=== PATIENT | female | born 1975 | race Caucasian/White ===

== ENCOUNTER 2018-04-21 20:48 | Observation (INO) | payer MEDICAID ==
[~2018-04-21] VITALS: Ht 157.5 cm; Wt 60.5 kg
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
[2018-04-21] MEDS ORDERED: ROBAXIN500 MG PO (20:56)
[2018-04-21] MEDS ORDERED: CELEXA20 MG PO (20:57)
[2018-04-21] MEDS ORDERED: TRAZODONE HCL50 MG PO (20:57)
[2018-04-21] MEDS ORDERED: VISTARIL25 MG PO (20:57)
[2018-04-21] MEDS ORDERED: LITHIUM CARBON300 MG PO (20:58)
[2018-04-21 21:00] VITALS: BP 129/84
[2018-04-21 21:30] LABS: BASOPHILS 0.2 % (0-2); EOSINOPHILS 0.6 % (0-7); HEMATOCRIT 43.1 % (36.0-48.0); HEMOGLOBIN 14.7 g/dL (12-16); IMMATURE GRANULOCYTES 0.1 % (0-5); LYMPHOCYTES 34.2 % (15-50); MCH 32.5 pg (26.0-34.0); MCHC 34.1 g/dL (31.0-37.0); MCV 95.4 fL (80.0-100.0); MEAN PLATELET VOLUME 8.8 fL (7.4-10.4); MONOCYTES 4.1 % (2-11); NEUTROPHILS 60.8 % (40-80); PLATELET COUNT 301 10x3/uL (130-400); RBC 4.52 10x6/uL (4.00-5.40); RDW 13.7 % (11.5-14.5); WBC 11.4 10x3/uL (4.8-10.8)
[2018-04-21 21:42] LABS: LITHIUM 0.2 mmol/L (0.60-1.20)
[2018-04-21 21:48] LABS: ALBUMIN 3.3 g/dL (3.4-5.0); ALKALINE PHOSPHATASE 68 U/L (46-116); ALT (SGPT) 17 U/L (10-68); BILIRUBIN - TOTAL 0.23 mg/dL (0.2-1.3); CALC OSMOLALITY 285 mosm/kg (275-300); CALCIUM 8.9 mg/dL (8.5-10.1); CARBON DIOXIDE 25.2 mmol/L (21.0-32.0); CHLORIDE - SERUM 109 mmol/L (98-107); CREATININE - SERUM 0.7 mg/dL (0.6-1.3); GLUCOSE 83 mg/dL (74-106); PROTEIN - SERUM 6.8 g/dL (6.4-8.2); SODIUM 145 mmol/L (136-145); UREA NITROGEN 6 mg/dL (7-18); eGFR NON AFRICAN AMERICAN > 90 mL/min (90-120)
[2018-04-21 21:50] LABS: HCG - QUANTITATIVE (MATERNAL) 1 mIU/mL
[2018-04-21 22:00] VITALS: BP 131/66
[2018-04-21 22:21] LABS: UDS - AMPHET NEGATIVE QUAL (NEGATIVE); UDS - BARB NEGATIVE QUAL (NEGATIVE); UDS - BENZO NEGATIVE QUAL (NEGATIVE); UDS - COCAINE NEGATIVE QUAL (NEGATIVE); UDS - OPIATE POSITIVE QUAL (NEGATIVE); UDS - PCP NEGATIVE QUAL (NEGATIVE); UDS - THC NEGATIVE QUAL (NEGATIVE)
[2018-04-21 23:00] VITALS: BP 103/55
[2018-04-22] VITALS (13 sets, daily range): BP systolic 114–154; BP diastolic 64–100; Ht 157.5 cm; Wt 60.5 kg
[2018-04-22 05:08] LABS: BASOPHILS 0.3 % (0-2); HEMATOCRIT 40.6 % (36.0-48.0); HEMOGLOBIN 13.6 g/dL (12-16); IMMATURE GRANULOCYTES 0.1 % (0-5); LYMPHOCYTES 35.3 % (15-50); MCH 31.9 pg (26.0-34.0); MCHC 33.5 g/dL (31.0-37.0); MCV 95.1 fL (80.0-100.0); MEAN PLATELET VOLUME 9.2 fL (7.4-10.4); MONOCYTES 4.8 % (2-11); NEUTROPHILS 58.5 % (40-80); PLATELET COUNT 338 10x3/uL (130-400); RBC 4.27 10x6/uL (4.00-5.40); RDW 13.8 % (11.5-14.5)
[2018-04-22 05:19] LABS: CALC OSMOLALITY 282 mosm/kg (275-300); CALCIUM 8.5 mg/dL (8.5-10.1); CARBON DIOXIDE 22.8 mmol/L (21.0-32.0); CHLORIDE - SERUM 111 mmol/L (98-107); CREATININE - SERUM 0.6 mg/dL (0.6-1.3); GLUCOSE 105 mg/dL (74-106); MAGNESIUM - SERUM 1.8 mg/dL (1.8-2.4); POTASSIUM - SERUM 3.6 mmol/L (3.5-5.1); SODIUM 143 mmol/L (136-145); UREA NITROGEN 7 mg/dL (7-18); eGFR NON AFRICAN AMERICAN > 90 mL/min (90-120)
[2018-04-22 05:24] LABS: WBC 7.8 10x3/uL (4.8-10.8)
== END 2018-04-22 12:52 | disposition home or self-care (01) ==
LOC: D.ER 20:48 → D.EDHOLD 22:56 → OBSVTIME 22:56 → D.ICU 22:56
PROVIDERS: Family Medicine
DX: T50.901A Poisoning by unspecified drugs, medicaments and biological substances, accidental (unintentional), initial encounter (principal); F32.9 Major depressive disorder, single episode, unspecified; R41.82 Altered mental status, unspecified

== ENCOUNTER → 2020-06-09 09:30 | Outpatient (CLI) | payer MEDICAID ==
[2018-04-22 09:48] VITALS: BMI 24.4
[~2020-06-09 09:30] MED LIST: CELEXA20 MG PO; LITHIUM CARBON300 MG PO; ROBAXIN500 MG PO; TRAZODONE HCL50 MG PO; VISTARIL25 MG PO
== END | disposition home or self-care (01) ==
LOC: D.NM 09:30
PROVIDERS: ATTEND Family Medicine
DX: R10.11 Right upper quadrant pain (principal)

== ENCOUNTER 2021-03-19 16:38 | Inpatient (IN) | payer MEDICAID ==
[2021-03-19] VITALS (10 sets, daily range): BP systolic 77–98; BP diastolic 43–65
[~2021-03-19] VITALS: Ht 157.5 cm; Wt 83.0 kg
[2021-03-19 17:34] LABS: HEMATOCRIT 41.2 % (36.0-48.0); HEMOGLOBIN 13.7 g/dL (12-16); MCHC 33.4 g/dL (31.0-37.0); MCV 95.8 fL (80.0-100.0); PLATELET COUNT 341 10x3/uL (130-400); RDW 14.2 % (11.5-14.5); WBC 10.3 10x3/uL (4.8-10.8)
[2021-03-19 17:52] LABS: CALC OSMOLALITY 282 mosm/kg (275-300); CALCIUM 8.9 mg/dL (8.5-10.1); CARBON DIOXIDE 20.5 mmol/L (21.0-32.0); CHLORIDE - SERUM 104 mmol/L (98-107); CREATININE - SERUM 0.9 mg/dL (0.6-1.3); GLUCOSE 111 mg/dL (74-106); POTASSIUM - SERUM 3.9 mmol/L (3.5-5.1); SODIUM 141 mmol/L (136-145); UREA NITROGEN 14 mg/dL (7-18); eGFR NON AFRICAN AMERICAN 71 mL/min (90-120)
[2021-03-19 17:54] LABS: SALICYLATES 4.9 mg/dL (2.8-20.0)
[2021-03-19 18:01] LABS: ALBUMIN 3.9 g/dL (3.4-5.0); ALKALINE PHOSPHATASE 92 U/L (30-120); ALT (SGPT) 148 U/L (10-68); BILIRUBIN - TOTAL 0.17 mg/dL (0.2-1.3); LIPASE 684 U/L (73-393); LITHIUM 0.02 mmol/L (0.60-1.20); MAGNESIUM - SERUM 2.1 mg/dL (1.8-2.4); PROTEIN - SERUM 7.3 g/dL (6.4-8.2)
[2021-03-19 18:02] LABS: ACETAMINOPHEN < 10.0 ug/mL (10.0-30.0)
[2021-03-19 18:52] LABS: EOSINOPHILS 2 % (0-7); LYMPHOCYTES 43 % (15-50); NEUTROPHILS 55 % (40-80); PLATELET ESTIMATE NORMAL
[2021-03-19 21:31] LABS: BILIRUBIN NEGATIVE (NEGATIVE); KETONE NEGATIVE (NEGATIVE); NITRITE NEGATIVE (NEGATIVE); UROBILINOGEN NORMAL mg/dL (< 2)
[2021-03-19 21:34] LABS: UDS - AMPHET NEGATIVE QUAL (NEGATIVE); UDS - BARB NEGATIVE QUAL (NEGATIVE); UDS - BENZO POSITIVE QUAL (NEGATIVE); UDS - COCAINE NEGATIVE QUAL (NEGATIVE); UDS - OPIATE NEGATIVE QUAL (NEGATIVE); UDS - PCP NEGATIVE QUAL (NEGATIVE); UDS - THC NEGATIVE QUAL (NEGATIVE)
--- NOTE | 2021-03-19 23:27 | NUR ---
DR. CHENG AND REVIEWED PT'S BEHAVIOR AND ASSESSMENT RESULTS. PT IS A LOW RISK PER DR. HCENG. DR. CHENG STATED TO GIVE RESOURCES TO PT AT TIME OF DISCHARGE. NO FURTHER ORDERS AT THIS TIME. RESOURCES REVIEWED WITH PT AND SHE VERBALIZED UNDERSTANDING.
[2021-03-20] VITALS (35 sets, daily range): BP systolic 83–166; BP diastolic 46–116; Ht 157.5 cm; Wt 83.0 kg
[2021-03-20] MEDS ORDERED: LIBRIUM5 MG PO (00:06)
[2021-03-20 04:28] LABS: HEMATOCRIT 35.2 % (36.0-48.0); HEMOGLOBIN 11.8 g/dL (12-16); MCH 32.2 pg (26.0-34.0); MCHC 33.6 g/dL (31.0-37.0); MCV 95.6 fL (80.0-100.0); MEAN PLATELET VOLUME 7.5 fL (7.4-10.4); PLATELET COUNT 286 10x3/uL (130-400); RBC 3.68 10x6/uL (4.00-5.40); RDW 13.8 % (11.5-14.5); WBC 5.5 10x3/uL (4.8-10.8)
[2021-03-20 04:33] LABS: APTT 27.2 SECONDS (22.8-39.4); INR 1.24 (0.85-1.17); PROTIME 14.4 SECONDS (11.6-15.0)
[2021-03-20 04:47] LABS: ALKALINE PHOSPHATASE 58 U/L (30-120); ALT (SGPT) 123 U/L (10-68); BILIRUBIN - TOTAL 0.21 mg/dL (0.2-1.3); CALC OSMOLALITY 290 mosm/kg (275-300); CALCIUM 7.5 mg/dL (8.5-10.1); CARBON DIOXIDE 25.1 mmol/L (21.0-32.0); CHLORIDE - SERUM 113 mmol/L (98-107); CREATINE KINASE 90 UL (21-215); CREATININE - SERUM 0.8 mg/dL (0.6-1.3); GLUCOSE 95 mg/dL (74-106); POTASSIUM - SERUM 4.2 mmol/L (3.5-5.1); PROTEIN - SERUM 5.6 g/dL (6.4-8.2); SODIUM 146 mmol/L (136-145); UREA NITROGEN 13 mg/dL (7-18); eGFR NON AFRICAN AMERICAN 81 mL/min (90-120)
[2021-03-20 04:49] LABS: ALBUMIN 2.9 g/dL (3.4-5.0); LIPASE 184 U/L (73-393); TROPONIN-I < 0.017 ng/mL (0.000-0.060)
[2021-03-20 05:28] LABS: CKMB 1.3 U/L (0.0-3.6)
[2021-03-20 05:44] LABS: EOSINOPHILS 1 % (0-7); LYMPHOCYTES 75 % (15-50); NEUTROPHILS 23 % (40-80); PLATELET ESTIMATE NORMAL
--- NOTE | 2021-03-20 06:05 | NUR ---
Shift summary: Patient follows commands, lethargic. Levophed drip off, maintaining adequate BP/MAP. Pain controlled with prn Tylenol. Denies any needs.
[2021-03-21] VITALS (13 sets, daily range): BP systolic 136–182; BP diastolic 91–115
[2021-03-21 05:20] LABS: BASOPHILS 0.4 % (0-2); HEMATOCRIT 31.8 % (36.0-48.0); HEMOGLOBIN 10.9 g/dL (12-16); LYMPHOCYTES 42.9 % (15-50); MCH 32.8 pg (26.0-34.0); MCHC 34.2 g/dL (31.0-37.0); MCV 96.1 fL (80.0-100.0); MEAN PLATELET VOLUME 7.9 fL (7.4-10.4); MONOCYTES 3.6 % (2-11); NEUTROPHILS 51.1 % (40-80); PLATELET COUNT 272 10x3/uL (130-400); RBC 3.31 10x6/uL (4.00-5.40); RDW 14.1 % (11.5-14.5); WBC 6.7 10x3/uL (4.8-10.8)
[2021-03-21 05:46] LABS: ALBUMIN 2.7 g/dL (3.4-5.0); ALKALINE PHOSPHATASE 60 U/L (30-120); ALT (SGPT) 101 U/L (10-68); BILIRUBIN - TOTAL 0.46 mg/dL (0.2-1.3); CALCIUM 7.4 mg/dL (8.5-10.1); CARBON DIOXIDE 24.9 mmol/L (21.0-32.0); CHLORIDE - SERUM 111 mmol/L (98-107); CREATININE - SERUM 0.6 mg/dL (0.6-1.3); GLUCOSE 82 mg/dL (74-106); MAGNESIUM - SERUM 1.7 mg/dL (1.8-2.4); PROTEIN - SERUM 5.2 g/dL (6.4-8.2); SODIUM 144 mmol/L (136-145); eGFR NON AFRICAN AMERICAN > 90 mL/min (90-120)
[2021-03-21 05:47] LABS: CALC OSMOLALITY 283 mosm/kg (275-300); POTASSIUM - SERUM 3.4 mmol/L (3.5-5.1); UREA NITROGEN 8 mg/dL (7-18)
[2021-03-21] MEDS ORDERED: LOPRESSOR25 MG (12:01)
--- NOTE | 2021-03-21 14:42 | NUR ---
RCVED PT VIA ICU STAFF. ALERT AND ORIENTED WITH NO CURRENT S/S OF DISTRESS AT THIS TIME. PT DENIES CURRENT NEEDS AT THIS TIME, WILL CONT TO MONITOR.
--- NOTE | 2021-03-21 15:49 | NUR ---
REPORTS HEADACHE, 6/10 PAIN. ADMINISTERED TYLENOL PER DRS ORDERS. WILL CONT TO MONITOR.
--- NOTE | 2021-03-21 19:45 | NUR ---
RECEIVED BEDSIDE REPORT. PT LAYING IN BED A&O X4. PIV TO LEFT HAND, PATENT AND INFUSING, NO REDNESS OR SWEELING. PT ABLE TO AMBULATE AD JOSE DE JESUS. EDUCATED PT ON CL AND NEEDS, VERBALIZED UNDERSTANDING. BED LOW, CL IN REACH.
[2021-03-22] VITALS: BP 131/79
[2021-03-22 04:00] VITALS: BP 144/75
[2021-03-22 05:23] VITALS: BP 169/106
[2021-03-22 06:03] LABS: BASOPHILS 0.4 % (0-2); EOSINOPHILS 2.1 % (0-7); LYMPHOCYTES 25.4 % (15-50); MCHC 33.5 g/dL (31.0-37.0); MCV 95.6 fL (80.0-100.0); MEAN PLATELET VOLUME 7.6 fL (7.4-10.4); MONOCYTES 4.2 % (2-11); NEUTROPHILS 67.9 % (40-80); PLATELET COUNT 274 10x3/uL (130-400); RBC 3.76 10x6/uL (4.00-5.40); RDW 13.8 % (11.5-14.5); WBC 7.3 10x3/uL (4.8-10.8)
[2021-03-22 06:17] VITALS: BP 147/88; BP 155/87
[2021-03-22 06:41] LABS: ALBUMIN 3.3 g/dL (3.4-5.0); ALKALINE PHOSPHATASE 76 U/L (30-120); ALT (SGPT) 92 U/L (10-68); BILIRUBIN - TOTAL 0.45 mg/dL (0.2-1.3); CALC OSMOLALITY 285 mosm/kg (275-300); CALCIUM 8.7 mg/dL (8.5-10.1); CHLORIDE - SERUM 108 mmol/L (98-107); CREATININE - SERUM 0.7 mg/dL (0.6-1.3); GLUCOSE 103 mg/dL (74-106); MAGNESIUM - SERUM 1.6 mg/dL (1.8-2.4); POTASSIUM - SERUM 3.5 mmol/L (3.5-5.1); PROTEIN - SERUM 6.5 g/dL (6.4-8.2); SODIUM 144 mmol/L (136-145); UREA NITROGEN 9 mg/dL (7-18); eGFR NON AFRICAN AMERICAN > 90 mL/min (90-120)
--- NOTE | 2021-03-22 08:33 | NUR ---
ASSESSMENT PER FLOW SHEET. PATIENT IS WITHOUT DISTRESS.HEADACHE 3/10 SCALE NOW. AM MEDS. HOPES TO DC TODAY. CALL LIGHT IN REACH.
[2021-03-22 08:47] VITALS: BP 142/86
--- NOTE | 2021-03-22 11:56 | NUR ---
Nutrition Follow-up: Diet: Regular PO intake: 100% x last 2 meals recorded. She ate 100% of breakfast and reports a good appetite. Denies chewing or swallowing difficulty. Last BM: none since admit Wt: 182# (03/21/21); Admit Wt: 174.1# Meds and labs reviewed Recommend: -Continue Regular diet. Will continue to honor food preferences. -RD will continue to monitor PO intake and wt trend. -RD will follow-up 03/27/21.
--- NOTE | 2021-03-22 14:34 | NUR ---
DISCHARGE INSTRUCTIONS,STATES UNDERSTANDING. IV DCD WITH CATH TIP INTACT.CALL FOR RIDE HOME.
--- NOTE | 2021-03-22 15:05 | MORECARE ---
CASE MANAGEMENT DISCHARGE SUMMARY PATIENT: LAVON JULES UNIT: [id number] ADM DATE: 03/19/21 AGE: 45 : 71 SEX: F ROOM/BED: D.2207 AUTHOR: KATLYN,DOC PHYSICIAN: REFERRING PHYSICIAN: JOHN BLANCAS MD DATE OF SERVICE: 03/22/21 Case Management Discharge Planning Summary COMMENTS ENTERED DATE: 03/22/21 14:54 CT COMMENT TYPE: Discharge Planning REVIEWER: Mariposa Whyte CM met with patient to complete initial dc planning assessment. CM educated patient on the CM role and verbal consent given by patient to complete assessment. Patient lives at home where she is independent with her care. Her mother will be her caterpillar driver home. At discharge patient plans to return home and feels this is a safe discharge. CM discussed availability of home health, rehab services, and medical equipment. Dr Cosby is her PCP and she uses the [facility] on [address]. ETOH information was given to her along with help centers and programs here locally. Patient denied known discharge needs at this time. CM will continue to follow and will assist as needed with dc plans/needs. DCP REVIEW SUMMARY ANTICIPATED D/C DATE: EXPECTED LOS : CASE STATUS: DCP Initiated INITIAL REVIEW: 03/19/2021 INITIAL REVIEWER: Mariposa Whyte FINAL DISCHARGE DISPOSITION: 01 : Home or Self Care (Routine Discharge) FINAL REVIEWER: FINAL REVIEW DATE: DCP Focus Questions & Answers QUESTION: ANSWER : PATIENT: LAVON JULES ENCOUNTER: [id number] MEDICAL RECORD#: [id number] ADMISSION DATE: 03/19/2021 DISCHARGE DATE: ATTENDING MD: JOHN RICK : AGE: 45 MARITAL STATUS: D DC PLAN ID: [id number] FACILITY: [facility] PRINTED ON: 03/22/21 15:05 CT All edits/amendments must be made on the electronic document DICTATION DATE: 03/22/21 1505 CRIME ANALYST: DAYSI 03/22/21 1505 RPT#: [id number] DC DATE: STATUS: ADM IN [facility] [address] [place] [address] END OF REPORT
--- NOTE | 2021-03-22 15:10 | NUR ---
LEFT UNIT FOR TRANSPORT HOME.
--- NOTE | 2021-03-22 15:20 | MORECARE ---
CASE MANAGEMENT DISCHARGE SUMMARY PATIENT: LAVON JULES UNIT: [id number] ADM DATE: 03/19/21 AGE: 45 : 71 SEX: F ROOM/BED: D.2207 AUTHOR: KATLYN,DOC PHYSICIAN: REFERRING PHYSICIAN: JOHN BLANCAS MD DATE OF SERVICE: 03/22/21 Case Management Discharge Planning Summary COMMENTS ENTERED DATE: 03/22/21 14:54 CT COMMENT TYPE: Discharge Planning REVIEWER: Mariposa Whyte CM met with patient to complete initial dc planning assessment. CM educated patient on the CM role and verbal consent given by patient to complete assessment. Patient lives at home where she is independent with her care. Her mother will be her auto transport driver home. At discharge patient plans to return home and feels this is a safe discharge. CM discussed availability of home health, rehab services, and medical equipment. Dr Cosby is her PCP and she uses the [facility] on [address]. ETOH information was given to her along with help centers and programs here locally. Patient denied known discharge needs at this time. CM will continue to follow and will assist as needed with dc plans/needs. DCP REVIEW SUMMARY ANTICIPATED D/C DATE: EXPECTED LOS : CASE STATUS: DCP Initiated INITIAL REVIEW: 03/19/2021 INITIAL REVIEWER: Mariposa Whyte FINAL DISCHARGE DISPOSITION: 01 : Home or Self Care (Routine Discharge) FINAL REVIEWER: FINAL REVIEW DATE: DCP Focus Questions & Answers QUESTION: ANSWER : PATIENT: LAVON JULES ENCOUNTER: [id number] MEDICAL RECORD#: [id number] ADMISSION DATE: 03/19/2021 DISCHARGE DATE: 03/22/2021 ATTENDING MD: JOHN RICK : AGE: 45 MARITAL STATUS: D DC PLAN ID: [id number] FACILITY: [facility] PRINTED ON: 03/22/21 15:20 CT All edits/amendments must be made on the electronic document DICTATION DATE: 03/22/21 152 SYSTEMS PROTECTION TECHNICIAN: DAYSI 03/22/21 1520 RPT#: [id number] DC DATE:03/22/21 STATUS: DIS IN [address] [address] END OF REPORT
--- NOTE | 2021-03-23 08:32 | EC ---
PATIENT:LAVON JULES DATE OF SERVICE: 03/19/21 SEX: F MEDICAL RECORD: [id number] DATE OF : 71 LOCATION:[facility] AGE OF PATIENT: 45 ADMISSION DATE: 03/19/21 REFERRING PHYSICIAN: INTERPRETING PHYSICIAN: JOSUE HINES MD ECHOCARDIOGRAM REPORT ECHO CHARGES 4 ECHO COMPLETE Date: 03/20/21 CLINICAL DIAGNOSIS: HYPOTENSION ECHOCARDIOGRAPHIC MEASUREMENTS (adult normal given) AC root (d.<3.7cm) 3.2 cm LV Septum d (<1.2 cm> 1.1 cm Valve Excursion 2.3 cm LV Septum (systole) 1.4 cm Left Atria (s.<4.0cm> 4.0 cm LVPW d(<1.2cm) 1.2 cm RV (d.<2.3cm) 3.1 cm LVPW (sytole) 1.3 cm LV diastole(<5.6CM) 4.8 cm MV E-F(>70mm/sec) cm LV systole 3.2 cm LVOT Diameter 2.0 cm MV exc.(>10mm) cm Est.ejection fraction (50-75%) 55 % DOPPLER: LVIT cm/sec A 94 cm/sec E 99 cm/sec LA cm/sec RVSP 40 mmHg LVOT 105 cm/sec AOP1/2T m/s Asc. Ao 166 cm/sec RVOT 66 cm/sec RA 3.4 cm/sec PA 68 cm/sec AV Gradient Peak 11 mmHg AV Mean 6 mmHg AV Area 1.9 cm MV Gradient Peak 6 mmHg MV Mean 2 mmHg MV Area cm COMMENTS: Development Team Lead: Anastacio MANZO Ethnic Studies Professor: 3 Dr. Nguyen TAPE# Pericardial Effusion N DATE OF SERVICE: Adequate 2D, color-flow imaging, spectral Doppler, and M-Mode. FINDINGS: No LVH. LV internal dimension is normal. Wall motion is normal. EF is greater than or equal to 55%. Aortic valve is tricuspid. No evidence of stenosis by Doppler interrogation. Mild AI by color flow imaging. Left atrium is upper limits of normal at 4.0 cm. Mitral valve shows no prolapse. Trace MR. Right-sided chambers are grossly normal. Trace TR. TRANSINT:[id number] Voice Confirmation ID: [id number] DOCUMENT ID: [id number] ECHOCARDIOGRAM REPORT [id number] LAVON JULES,JOSUE Bauer MD at 0832 CC: [id number] DICTATION DATE: 03/20/21 1537 INSTALLER MOLDING AND TRIM: 03/20/21 7324 DIS IN 03/22/21 [facility] [address] [facility] [address]
--- NOTE | 2021-03-23 08:49 | MORECARE ---
CASE MANAGEMENT DISCHARGE SUMMARY PATIENT: LAVON JULES UNIT: [id number] ADM DATE: 03/19/21 AGE: 45 : 71 SEX: F ROOM/BED: D.2207 AUTHOR: KATLYN,DOC PHYSICIAN: REFERRING PHYSICIAN: JOHN BLANCAS MD DATE OF SERVICE: 03/23/21 Case Management Discharge Planning Summary COMMENTS ENTERED DATE: 03/22/21 14:54 CT COMMENT TYPE: Discharge Planning REVIEWER: Mariposa Whyte CM met with patient to complete initial dc planning assessment. CM educated patient on the CM role and verbal consent given by patient to complete assessment. Patient lives at home where she is independent with her care. Her mother will be her otr company driver home. At discharge patient plans to return home and feels this is a safe discharge. CM discussed availability of home health, rehab services, and medical equipment. Dr Cosby is her PCP and she uses the [facility] on [address]. ETOH information was given to her along with help centers and programs here locally. Patient denied known discharge needs at this time. CM will continue to follow and will assist as needed with dc plans/needs. DCP REVIEW SUMMARY ANTICIPATED D/C DATE: EXPECTED LOS : CASE STATUS: DCP Initiated INITIAL REVIEW: 03/19/2021 INITIAL REVIEWER: Mariposa Whyte FINAL DISCHARGE DISPOSITION: 01 : Home or Self Care (Routine Discharge) FINAL REVIEWER: FINAL REVIEW DATE: DCP Focus Questions & Answers QUESTION: ANSWER : PATIENT: LAVON JULES ENCOUNTER: [id number] MEDICAL RECORD#: [id number] ADMISSION DATE: 03/19/2021 DISCHARGE DATE: 03/22/2021 ATTENDING MD: JOHN RICK : AGE: 45 MARITAL STATUS: D DC PLAN ID: [id number] FACILITY: [facility] PRINTED ON: 03/23/21 8:49 CT All edits/amendments must be made on the electronic document DICTATION DATE: 03/23/21848 INSURANCE COUNSELOR: DAYSI 03/23/21848 RPT#: [id number] DC DATE:03/22/21 STATUS: DIS IN [place] [id number] [place] [address] END OF REPORT
== END 2021-03-22 15:10 | disposition home or self-care (01) | DRG 439 ==
LOC: D.ER 16:38 → D.ICU 23:38 → D.MS 03-21 14:26
PROVIDERS: Family Medicine; ADMIT Family Medicine Adult Medicine; ATTEND Family Medicine Adult Medicine
DX: K85.90 Acute pancreatitis without necrosis or infection, unspecified (principal); R45.851 Suicidal ideations; I95.9 Hypotension, unspecified; F10.129 Alcohol abuse with intoxication, unspecified; Y90.8 Blood alcohol level of 240 mg/100 ml or more; F41.8 Other specified anxiety disorders